=== PATIENT | female | born 1965 | race Caucasian/White ===

== ENCOUNTER → 2022-09-25 09:55 | Outpatient (CLI) | payer OTHER, SELFPAY ==
[2022-09-25 10:52] LABS: Add Manual Diff / Slide Review NO; Basophils Absolute Auto 0 /uL (0-100); Basophils Percent Auto 0.7 % (0-2); Eosinophils Absolute Auto 100 /uL (0-450); Eosinophils Percent Auto 1.9 % (2-4); Hematocrit 41.7 % (36-46); Hemoglobin 14.4 g/dL (12.0-16.0); Lymphocytes Absolute Auto 1300 /uL (1100-4500); Lymphocytes Percent Auto 24.9 % (25-40); Mean Corpuscular HGB Conc 34.5 % (30-36); Mean Corpuscular Hemoglobin 30.4 PG (26-34); Mean Corpuscular Volume 88.1 fL (80-100); Monocytes Absolute Auto 500 /uL (0-900); Neutrophils Absolute Auto 3300 /uL (1500-7000); Neutrophils Percent Auto 62.5 % (50-75); Platelet Count 287 X10^3/uL (150-400); Red Blood Cell Count 4.74 X10^6/uL (4.0-5.2); Red Cell Distribution Width 13.1 % (11.6-14.8); White Blood Cell Count 5.3 X10^3/uL (4.5-11.0)
[2022-09-25 11:00] LABS: Appearance Urine UA CLEAR; Bilirubin Urine UA NEGATIVE (NEGATIVE); Color Urine UA YELLOW; Glucose Urine UA NEGATIVE (Negative); Ketones Urine UA NEGATIVE (NEGATIVE); Leukocyte Esterase Urine UA NEGATIVE (NEGATIVE); Nitrite Urine UA NEGATIVE (Negative); Occult Blood Urine UA NEGATIVE (Negative); Protein Urine UA NEGATIVE (Negative); Urobilinogen Urine UA 0.2 E.U./dL (0.2)
[2022-09-25 11:03] LABS: pH Urine UA 5.5 (4.5-8.0)
[2022-09-25 11:13] LABS: Bacteria Urine Many (>30); Culture Indicated Urine Cult Not Indicated; RBC Urine None Seen (0-5/HPF); Squamous Epithelial Cell Urine 1-5 /HPF (0-5/HPF); WBC Urine 1-5/HPF (0-5/HPF)
[2022-09-25 12:05] LABS: TSH w/ Reflex to FT4 0.86 uIU/mL (0.47-4.68)
[2022-09-25 12:18] LABS: Vitamin D 25 Hydroxy (D3) 17.2 ng/mL (30.0-100.0)
[2022-09-25 16:57] LABS: Alanine Aminotransferase 60 IU/L (<35); Albumin 4.6 g/dL (3.5-5.0); Albumin Globulin Ratio 1.2 (1.0-2.8); Alkaline Phosphatase 183 U/L (38-126); Aspartate Aminotransferase 43 IU/L (14-36); BUN Creatinine Ratio 18.5 (6-22); Bilirubin Total 0.3 mg/dL (0.2-1.3); Blood Urea Nitrogen 10 mg/dL (7-17); Calcium 9.7 mg/dL (8.4-10.2); Carbon Dioxide 31 mmol/L (22-32); Chloride 100 mmol/L (98-107); Cholesterol 220 mg/dL (140-199); Estimated Glomerular Filt Rate > 60 mL/min (>60); Globulin 3.7 g/dL (1.7-4.1); Glucose 113 mg/dL (70-100); HDL Cholesterol 58 mg/dL (40-60); HEMOLYSIS < 15 (0-50); LDL Cholesterol Calculated 130 mg/dL (<100); Potassium 4.8 mmol/L (3.4-5.1); Sodium 138 mmol/L (137-145); Total Protein 8.3 g/dL (6.3-8.2); Triglycerides 160 mg/dL (35-150)
[2022-09-25 17:44] LABS: Vitamin B12 235 pg/mL (239-931)
[2022-09-26 05:27] LABS: Labcorp Hemoglobin (Hb) A1c 6.9 % (4.8-5.6)
[2022-09-26 10:30] LABS: Gamma Glutamyl Transpeptidase 51 U/L (12-43)
== END ==
PROVIDERS: PCP Registered Nurse; Referring Provider Registered Nurse; Visit Provider Registered Nurse
DX: Z98.84 Bariatric surgery status (principal); Z13.220 Encounter for screening for lipoid disorders; Z13.29 Encounter for screening for other suspected endocrine disorder; R30.0 Dysuria
CPT/HCPCS: 36415; 80053; 80061; 81001; 82306; 82607; 82977; 83036; 84443; 85025

== ENCOUNTER → 2022-10-23 10:42 | Outpatient (CLI) | payer OTHER, SELFPAY ==
--- NOTE | 2022-10-23 | DI.MG.S_ITS ---
BILATERAL DIGITAL SCREENING MAMMOGRAM 3D/2D WITH CAD: 10/23/2022 CLINICAL: Baseline by default. No prior exams were available for comparison. There are scattered areas of fibroglandular density in both breasts (category b / 25%-50% glandular tissue). Current study was also evaluated with a Computer Aided Detection (CAD) system. No significant masses, calcifications, or other findings are seen in either breast. IMPRESSION: NEGATIVE There is no mammographic evidence of malignancy. A 1 year screening mammogram is recommended. Based on the Tyrer Cuzick model (a risk assessment model) the patient's lifetime risk is 8.8% and her 10 year risk is 3.3%. According to the ACR, ACS, and NCCN guidelines, an annual breast MRI exam along with mammogram is recommended if the patient's lifetime risk is 20% or greater. This exam was interpreted at Station ID: [id number]. NOTE: For mammograms, a report in lay terms will be sent to the patient. Approximately 15% of breast malignancies will not be visualized mammographically. In the management of a palpable breast mass, a negative mammogram must not discourage biopsy of a clinically suspicious lesion. Electronically Signed By: Nilesh bui/jaya:10/23/2022 12:33:59 letter sent: Normal Exam ACR BI-RADS Category 1: Negative [id number]
--- NOTE | 2022-10-23 11:07 | DI.DEXA.S_ITS ---
Bone Density Report Name: YASMIN VERGARA Age: 57 Sex: Female Ethnicity: White Date of : 1965 Indication: postmenopausal; screening for osteoporosis; Referring Provider: SHWETA SHAIKH Study: Bone densitometry was performed. Exam Date: October 23, 2022 Accession number: [id number] Bone Density: Region BMD T-score Z-score Classification AP Spine(L1-L4) 0.904 -1.3 0.0 Osteopenia Femoral Neck (Left) 0.686 -1.5 -0.3 Osteopenia Total Hip (Left) 0.812 -1.1 -0.2 Osteopenia Femoral Neck (Right) 0.637 -1.9 -0.7 Osteopenia Total Hip (Right) 0.736 -1.7 -0.8 Osteopenia Total Hip Mean 0.774 -1.4 -0.5 Osteopenia World Health Organization criteria for BMD impression classify patients as: Normal (T-score at or above -1.0), Osteopenia (T-score between -1.0 and -2.5), or Osteoporosis (T-score at or below -2.5). Impression: The patient has low bone mass, based on the Right Femoral Neck T-score. Discussion: BONE DENSITY IS LOW AT ONE OR MORE SKELETAL SITES. This patient's lowest T-score is low at one or more skeletal sites. It meets the World Health Organization's (WHO) criteria for ?low bone mass? (T-score between -1.0 and -2.5). The patient's 10-year risk of fracture as calculated by FRAX is less than the threshold where pharmacological therapy is recommended by the National Osteoporosis Foundation (NOF). However, all treatment decisions require clinical judgment and consideration of individual patient factors, including patient preferences, comorbidities, previous drug use, risk factors not captured in the FRAX model (e.g., frailty, falls, vitamin D deficiency, increased bone turnover, interval significant decline in bone density) and possible under or overestimation of fracture risk by FRAX. The patient should follow a healthful lifestyle (good nutrition with adequate calcium and vitamin D, and appropriate weight-bearing exercise). Follow-Up: Consider repeating this study in 2 to 3 years to reassess this patient's status, or sooner if there is some new clinical indication. Reported by: MAURICIO JUAREZ MD on 10/23/2022 11:14:00 AM.
== END ==
PROVIDERS: PCP Registered Nurse; Referring Provider Registered Nurse; Visit Provider Registered Nurse
DX: S32.010A Wedge compression fracture of first lumbar vertebra, initial encounter for closed fracture (principal); Z12.31 Encounter for screening mammogram for malignant neoplasm of breast; Z13.820 Encounter for screening for osteoporosis; Z78.0 Asymptomatic menopausal state; M85.851 Other specified disorders of bone density and structure, right thigh
CPT/HCPCS: 77063; 77067; 77080

== ENCOUNTER 2022-12-11 12:49 | Emergency (ER) | payer OTHER, SELFPAY ==
[2022-12-11 13:27] VITALS: BP 143/83; PULSE 82; RESP 18; TEMP 36.6; O2SAT 96; BMI 30.9
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
== END 2022-12-11 16:46 | disposition left against medical advice (07) ==
PROVIDERS: Emergency Provider Emergency Medicine; PCP Registered Nurse
DX: M79.671 Pain in right foot (principal); S22.43XA Multiple fractures of ribs, bilateral, initial encounter for closed fracture; V89.2XXA Person injured in unspecified motor-vehicle accident, traffic, initial encounter
CPT/HCPCS: 71046; 73610; 73630; 99281

== ENCOUNTER → 2022-12-12 06:44 | Outpatient (CLI) | payer OTHER, SELFPAY ==
--- NOTE | 2022-12-12 06:47 | DI.US.S_ITS ---
PROCEDURE: US THYROID INDICATIONS: Nontoxic single thyroid nodule TECHNIQUE: Real-time scanning was performed of the thyroid gland, with image documentation. COMPARISON: None. FINDINGS: Right: Thyroid lobe measures 5.3 x 1.6 x 1.8 cm, and is heterogeneous in echotexture. Left: Thyroid lobe measures 3.8 x 1.2 x 1.4 cm, and is heterogeneous in echotexture. Isthmus: 5.1 mm thick. Nodule number: 1 Location: Upper pole left thyroid lobe Size: 1.2 x 1.1 x 1.4 cm. Composition: Solid Echogenicity: Hypoechoic Shape: Wider than tall Margins: Ill-defined Echogenic foci: None Total points: 6 ACR TI-RADS category: Moderately suspicious. Nodule number: 2 Location: Mid pole left thyroid lobe. Size: 0.8 x 0.6 x 0.7 cm. Composition: Solid Echogenicity: Hypoechoic Shape: Wider than tall Margins: Ill-defined Echogenic foci: None Total points: 6 ACR TI-RADS category: Moderately suspicious. Nodule number: 3 Location: Left isthmus Size: 0.3 x 0.5 x 0.6 cm. Composition: Solid Echogenicity: Hypoechoic Shape: Wider than tall Margins: Ill-defined Echogenic foci: Macro calcifications Total points: 6 ACR TI-RADS category: Moderately suspicious Nodule number: 4 Location: Mid pole right thyroid lobe Size: 1.8 x 1.3 x 1.4 cm Composition: Solid Echogenicity: Hypoechoic Shape: Wider than tall Margins: Ill-defined Echogenic foci: Macro calcifications Total points: 6 ACR TI-RADS category: Moderately suspicious IMPRESSION: Bilateral thyroid lobe nodules as described above. Consider fine-needle aspiration of right mid pole thyroid lobe nodule for further evaluation. ACR TI-RADS definitions and recommendations: TI-RADS 1 (benign): 0 points. FNA not needed. TI-RADS 2 (not suspicious): 2 points. FNA not needed. TI-RADS 3 (mildly suspicious): 3 points. * FNA if 2.5 cm or larger, follow up if 1.5 cm or larger (at 1, 3, and 5 years). TI-RADS 4 (moderately suspicious): 4-6 points. * FNA if 1.5 cm or larger, follow up if 1 cm or larger (at 1, 2, 3, and 5 years). TI-RADS 5 (highly suspicious): 7 points or more. * FNA if 1 cm or larger, follow up if 0.5 cm or larger (every year for 5 years). Dictated by: Jay Ortega M.D. on 12/12/2022 at 9:27 Approved by: Jay Ortega M.D. on 12/12/2022 at 9:30
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
== END ==
LOC: US 06:45
PROVIDERS: PCP Registered Nurse; Referring Provider Registered Nurse; Visit Provider Registered Nurse
DX: E04.2 Nontoxic multinodular goiter (principal); M51.34 Other intervertebral disc degeneration, thoracic region; M48.55XA Collapsed vertebra, not elsewhere classified, thoracolumbar region, initial encounter for fracture
CPT/HCPCS: 72070; 76536

== ENCOUNTER → 2022-12-13 08:23 | Outpatient (CLI) | payer OTHER, SELFPAY ==
[2022-12-13 09:10] LABS: Alanine Aminotransferase 83 IU/L (<35); Albumin 4.4 g/dL (3.5-5.0); Albumin Globulin Ratio 1.5 (1.0-2.8); Alkaline Phosphatase 95 U/L (38-126); Aspartate Aminotransferase 65 IU/L (14-36); BUN Creatinine Ratio 16.4 (6-22); Bilirubin Total 0.8 mg/dL (0.2-1.3); Blood Urea Nitrogen 9 mg/dL (7-17); Carbon Dioxide 31 mmol/L (22-32); Chloride 99 mmol/L (98-107); Estimated Glomerular Filt Rate > 60 mL/min (>60); Globulin 2.9 g/dL (1.7-4.1); Glucose 138 mg/dL (70-100); HEMOLYSIS < 15 (0-50); Potassium 4.6 mmol/L (3.4-5.1); Sodium 138 mmol/L (137-145); Total Protein 7.3 g/dL (6.3-8.2)
[2022-12-13 09:17] LABS: Vitamin D 25 Hydroxy (D3) 29.5 ng/mL (30.0-100.0)
[2022-12-13 09:50] LABS: Vitamin B12 326 pg/mL (239-931)
[2022-12-13 10:59] LABS: Creatinine Urine Random 147.3 mg/dL
[2022-12-13 11:04] LABS: Microalbumi Creatinin Ratio Ur 4.7 ug/mg CR (<30); Microalbumin Urine Random 0.7 mg/dL (0-1.6)
[2022-12-14 05:53] LABS: Labcorp Hemoglobin (Hb) A1c 6.1 % (4.8-5.6)
== END ==
PROVIDERS: PCP Registered Nurse; Referring Provider Registered Nurse; Visit Provider Registered Nurse
DX: E11.9 Type 2 diabetes mellitus without complications (principal); E53.8 Deficiency of other specified B group vitamins; E55.9 Vitamin D deficiency, unspecified
CPT/HCPCS: 36415; 80053; 82043; 82306; 82570; 82607; 83036

== ENCOUNTER → 2022-12-27 07:43 | Outpatient (CLI) | payer OTHER, SELFPAY ==
--- NOTE | 2022-12-27 | DI.US.S_ITS ---
PROCEDURE: US FINE NEEDLE ASPIRATION INDICATIONS: THYROID NODULE TECHNIQUE: The indications, alternatives, benefits, risks, and complications of the procedure were explained to the patient. Written informed consent was obtained and placed in the chart. The area of interest was examined sonographically and a site was chosen for ultrasound guided percutaneous sampling. The skin was prepared and draped in the usual fashion, and anesthetized with 1% lidocaine infiltrated from the skin down to the lesion. Multiple passes were then performed, with contents emptied into an appropriate pathology specimen container. A bandage was applied to the area of access at completion of the study. COMPARISON: None. FINDINGS: Location of lesion sampled: Left mid posterior (nodule #4 on US from 12/12/2022) Merrill: 25 gauge hypodermic needles. Number of passes: 6 Medications: 1% lidocaine for local anaesthesia. Complications: None. A right superior thyroid nodule is seen measuring 1.9 x 1.1 x 1.6 cm, which is solid, hypoechoic, [id number], and demonstrates smooth margins and no internal calcifications. This nodule was not included on the prior US due to other nodules with higher TI-RADS scores. IMPRESSION: 1. Successful ultrasound-guided right thyroid nodule fine needle aspiration, with cytology results pending. 2. Of note, additional right superior pole 1.9 cm nodule is seen that is only at a moderate suspicion for malignancy, but meets criteria for ultrasound guided fine-needle aspiration given its size. Recommend correlation with pathology results from the nodule biopsied today and possible fine needle aspiration of the additional nodule if indicated clinically. Approved by: Julio Blackmon M.D. on 12/27/2022 at 9:08
--- NOTE | 2022-12-27 | PATH_ITS ---
Note [facility] Accession Number: [id number] TESTS RESULT FLAG UNITS REF RANGE LAB Clinician Provided Cytology Information No. of containers..02 Previously Prepared Cytology Slide 35 Unknown Storage/container code(s) Source: [A] 01 RIGHT THYROID MID NODULE #4 DIAGNOSIS: [A] 01 RIGHT THYROID MID NODULE #4 SUSPICIOUS FOR MALIGNANCY. BETHESDA CATEGORY V. SUSPICIOUS FOR PAPILLARY CARCINOMA. SPECIMEN CONSISTS OF FOLLICULAR CELLS WITH NUCLEAR ENLARGEMENT, FINE CHROMATIN, AND INTRANUCLEAR GROOVES. THIS PATTERN IS SUSPICIOUS FOR PAPILLARY CARCINOMA. Pathologist ICD10: 01 R89.6, E04.2 Signed out by: Karla Diaz MD, Pathologist NPI- [id number] Performed by: Elijah Castañeda, Mining Manager ([facility]) Gross description: 30 CC, PINK, CLEAR RECIEVED: IN CYTOLYT WITH 6 ALCOHOL FIXED AND 6 QUICK STAINED SLIDES ALSO 1 RNA VIAL WAS RECEIVED.VO /VDU 12/28/2022 0727 Local FLAG LEGEND: L-Low Normal,H-High Normal,LL-Alert Low,HH-Alert High <-Panic Low,>-Panic High,A-Abnormal,AA-Critical Abnormal Performed at: 01 =[facility] [address] [place] [address], [place] [address] Gil Porter MD, Specimen Comment: A courtesy copy of this report has been sent to the patient Specimen Comment: A duplicate report has been generated due to demographic updates. Performed at: [address] [facility] [address], [place], [place] [id number] MD Gil Porter MD Phone: [phone]
== END ==
PROVIDERS: PCP Registered Nurse; Referring Provider Registered Nurse; Visit Provider Registered Nurse
DX: E04.2 Nontoxic multinodular goiter (principal)
CPT/HCPCS: 10005

== ENCOUNTER → 2023-01-29 12:10 | Outpatient (CLI) | payer OTHER, SELFPAY ==
--- NOTE | 2023-01-29 | DI.RAD.S_ITS ---
PROCEDURE: XR CHEST 2V INDICATIONS: Other chest pain TECHNIQUE: 2 views of the chest were acquired. COMPARISON: [facility], CR, XR CHEST 2V, 12/11/2022, 13:56. FINDINGS: Surgical changes and devices: None. Lungs and pleura: Lungs are clear. No pleural effusions or pneumothorax. Mediastinum: Mediastinal contours are normal. Heart size is normal. Bones and chest wall: No suspicious bony abnormalities. Soft tissues appear unremarkable. IMPRESSION: No acute cardiopulmonary process. Dictated by: Marvin Sullivan M.D. on 01/29/2023 at 13:31 Approved by: Marvin Sullivan M.D. on 01/29/2023 at 13:32
== END ==
LOC: RAD 12:12
PROVIDERS: PCP Registered Nurse; Referring Provider Registered Nurse; Visit Provider Registered Nurse
DX: R07.89 Other chest pain (principal)
CPT/HCPCS: 71046

== ENCOUNTER 2023-02-11 12:08 | Emergency (ER) | payer OTHER, SELFPAY ==
[2023-02-11] VITALS (19 sets, daily range): BP systolic 129–184; BP diastolic 66–94; PULSE 71–98; RESP 13–28; TEMP 36.3; O2SAT 95–98; BMI 30.9
[2023-02-11 13:11] LABS: Add Manual Diff / Slide Review NO; Basophils Absolute Auto 0 /uL (0-100); Basophils Percent Auto 0.6 % (0-2); Eosinophils Absolute Auto 300 /uL (0-450); Eosinophils Percent Auto 4.1 % (2-4); Hemoglobin 15.6 g/dL (12.0-16.0); Lymphocytes Absolute Auto 2400 /uL (1100-4500); Lymphocytes Percent Auto 30.3 % (25-40); Mean Corpuscular HGB Conc 34.6 % (30-36); Mean Corpuscular Hemoglobin 31.8 PG (26-34); Monocytes Absolute Auto 600 /uL (0-900); Monocytes Percent Auto 7.5 % (3-14); Neutrophils Absolute Auto 4600 /uL (1500-7000); Neutrophils Percent Auto 57.5 % (50-75); Platelet Count 256 X10^3/uL (150-400); Red Blood Cell Count 4.89 X10^6/uL (4.0-5.2); Red Cell Distribution Width 12.8 % (11.6-14.8); White Blood Cell Count 7.9 X10^3/uL (4.5-11.0)
[2023-02-11 13:12] LABS: Alanine Aminotransferase 46 IU/L (<35); Albumin 4.5 g/dL (3.5-5.0); Albumin Globulin Ratio 1.5 (1.0-2.8); Alkaline Phosphatase 94 U/L (38-126); Aspartate Aminotransferase 58 IU/L (14-36); BUN Creatinine Ratio 20.8 (6-22); Bilirubin Total 0.4 mg/dL (0.2-1.3); Blood Urea Nitrogen 10 mg/dL (7-17); Carbon Dioxide 23 mmol/L (22-32); Chloride 104 mmol/L (98-107); Estimated Glomerular Filt Rate > 60 mL/min (>60); Globulin 3.1 g/dL (1.7-4.1); Glucose 99 mg/dL (70-100); HEMOLYSIS 40 (0-50); Lipase 200 U/L (23-300); Potassium 4.8 mmol/L (3.4-5.1); Sodium 137 mmol/L (137-145); Total Protein 7.6 g/dL (6.3-8.2)
[2023-02-11 13:16] LABS: Magnesium 1.4 mg/dL (1.6-2.3)
[2023-02-11 13:47] LABS: TSH w/ Reflex to FT4 1.01 uIU/mL (0.47-4.68)
--- NOTE | 2023-02-11 15:34 | ED.RECABL ---
HPI - Recheck/Abnormal Lab/Rx General Chief Complaint: Recheck/Abnormal Lab/Rx Stated Complaint: thyroid surgery t-5, sent by , low calcium Time Seen by Provider: 02/11/23 13:27 History of Present Illness HPI narrative: Patient 57-year-old female recent history of type 2 diabetes, gastric bypass, thyroidectomy for thyroid cancer [address] [facility]. She reports she was feeling weak lightheaded. She is been taking oral calcium for thinks that her calcium is still low. She denies fever or chills. She is been taking oral calcium and Tums. Just generally feeling shaky and weak. Related Data Allergies Allergy/AdvReac Type Severity Reaction Status Date / Time No Known Drug Allergies Allergy Verified 12/11/22 13:27 Review of Systems Review of Systems ROS Unobtainable: All systems reviewed & are unremarkable except as noted in HPI and below Patient History Social History Smoking Status: Former smoker Smoking Status: Former smoker alcohol intake frequency: 0-2 drinks per day Alcohol type: wine Substance Use Type: does not use Exam Initial Vital Signs Initial Vital Signs: Vital Signs Temperature 97.4 F L 02/11/23 12:30 Pulse Rate 72 02/11/23 12:30 Respiratory Rate 16 02/11/23 12:30 Blood Pressure 184/83 H 02/11/23 12:30 Pulse Oximetry 97 02/11/23 12:30 Oxygen Delivery Method Room Air 02/11/23 12:30 GENERAL: Alert pleasant 57-year-old female and in no acute distress. HEENT: Head atraumatic,EOMI, pupils reactive, face symmetric, moist mucous membranes CARDIOVASCULAR: Regular rate and rhythm without murmurs, rubs or gallops. RESPIRATORY: Breath sounds equal bilaterally, no wheezes rales or rhonchi. ABDOMEN: Soft, nontender. Normoactive bowel sounds all 4 quadrants. No guarding or rebound. EXTREMITIES: Normal range of motion, no clubbing or edema. Neurovascularly intact NEUROLOGICAL: Alert and oriented x4. SKIN: Incision site noted on neck clean and dry Steri-Strips in place Course Orders Ordered: ED Orders 02/11/23 12:43 Complete Blood Count AUTO DIFF Stat Comprehensive Metabolic Panel Stat Lipase Stat MAG [Magnesium] Stat PHOS [Phosphorous] Stat TSH w/ Reflex to FT4 Stat 02/11/23 12:52 EKG-12 Lead Stat 02/11/23 13:26 Ionized Calcium Stat Discontinued Medications Calcium Gluconate 4.65 meq/ (Sodium Chloride) 60 mls @ 180 mls/hr IV NOW ONE Stop: 02/11/23 15:53 Last Infusion: 02/11/23 17:03 Dose: 0 mls/hr Documented By: Admin: 02/11/23 16:25 Dose: 180 mls/hr Documented By: TORSTEN Magnesium Sulfate (Magnesium Sulfate) 2 gm in 50 mls @ 150 mls/hr IV NOW ONE Stop: 02/11/23 15:54 Last Infusion: 02/11/23 17:49 Dose: 0 mls/hr Documented By: TORSTEN Co-signed By: ART Admin: 02/11/23 17:04 Dose: 75 mls/hr Documented By: TORSTEN Co-signed By: CARY Ondansetron HCl (Ondansetron 4 Mg Odt) 4 mg PO NOW PRN PRN Reason: Nausea And Vomiting Ondansetron HCl (Ondansetron 4 Mg/2 Ml Inj) 4 mg IV NOW PRN PRN Reason: Nausea And Vomiting Vital Signs Vital signs: Vital Signs - 8 hr 02/11/23 12:30 02/11/23 12:47 02/11/23 12:47 Temperature 97.4 F L Pulse Rate 72 75 Respiratory Rate 16 Blood Pressure 184/83 H 167/94 H Pulse Oximetry 97 97 Oxygen Delivery Method Room Air 02/11/23 12:49 02/11/23 12:49 02/11/23 13:00 Temperature Pulse Rate 71 Respiratory Rate 21 Blood Pressure 162/89 H 164/87 H Pulse Oximetry 98 Oxygen Delivery Method 02/11/23 13:00 02/11/23 13:30 02/11/23 13:30 Temperature Pulse Rate 74 74 Respiratory Rate 16 18 Blood Pressure 162/70 H Pulse Oximetry 96 96 Oxygen Delivery Method 02/11/23 14:00 02/11/23 14:00 02/11/23 14:30 Temperature Pulse Rate 77 85 Respiratory Rate 19 13 Blood Pressure 141/75 H Pulse Oximetry 96 95 Oxygen Delivery Method Room Air 02/11/23 15:13 02/11/23 15:30 02/11/23 16:01 Temperature Pulse Rate 75 79 98 H Respiratory Rate 16 28 H 24 Blood Pressure Pulse Oximetry Oxygen Delivery Method 02/11/23 16:14 02/11/23 16:14 02/11/23 16:16 Temperature Pulse Rate 82 84 Respiratory Rate 15 16 Blood Pressure 158/75 H Pulse Oximetry Oxygen Delivery Method 02/11/23 16:16 02/11/23 16:20 02/11/23 16:20 Temperature Pulse Rate 84 Respiratory Rate 16 Blood Pressure 138/74 135/69 Pulse Oximetry Oxygen Delivery Method 02/11/23 16:30 02/11/23 16:40 02/11/23 16:40 Temperature Pulse Rate 84 83 Respiratory Rate 16 20 Blood Pressure 129/85 Pulse Oximetry 97 96 Oxygen Delivery Method 02/11/23 17:00 02/11/23 17:00 02/11/23 17:21 Temperature Pulse Rate 80 82 Respiratory Rate 20 22 Blood Pressure 134/83 Pulse Oximetry 96 96 Oxygen Delivery Method 02/11/23 17:21 02/11/23 17:30 02/11/23 17:40 Temperature Pulse Rate 81 75 Respiratory Rate 17 21 Blood Pressure 135/66 Pulse Oximetry 96 95 Oxygen Delivery Method Room Air 02/11/23 17:40 Temperature Pulse Rate Respiratory Rate Blood Pressure 148/83 H Pulse Oximetry Oxygen Delivery Method MDM - Recheck/Abnormal Lab/Rx Lab Data 02/11/23 12:43 02/11/23 12:43 Labs: Lab Results 02/11/23 02/11/23 02/11/23 Range/Units 12:43 12:43 12:43 WBC 7.9 (4.5-11.0) X10^3/uL RBC 4.89 (4.0-5.2) X10^6/uL Hgb 15.6 (12.0-16.0) g/dL Hct 45.0 (36-46) % MCV 92.0 (80-100) fL MCH 31.8 (26-34) PG MCHC 34.6 (30-36) % RDW 12.8 (11.6-14.8) % Plt Count 256 (150-400) X10^3/uL Neut % (Auto) 57.5 (50-75) % Lymph % (Auto) 30.3 (25-40) % [place] % (Auto) 7.5 (3-14) % Eos % (Auto) 4.1 H (2-4) % Baso % (Auto) 0.6 (0-2) % Neut # (Auto) 4600 (3779-8649) /uL Lymph # (Auto) 2400 (3564-1008) /uL [place] # (Auto) 600 (0-900) /uL Eos # (Auto) 300 (0-450) /uL Baso # (Auto) 0 (0-100) /uL Sodium 137 (137-145) mmol/L Potassium 4.8 (3.4-5.1) mmol/L Chloride 104 (98-107) mmol/L Carbon Dioxide 23 (22-32) mmol/L BUN 10 (7-17) mg/dL Creatinine 0.48 L (0.52-1.04) mg/dL Estimated GFR > 60 (>60) mL/min BUN/Creatinine Ratio 20.8 (6-22) Glucose 99 (70-100) mg/dL Calcium 7.0 L (8.4-10.2) mg/dL Phosphorus (2.5-4.5) mg/dL Magnesium (1.6-2.3) mg/dL Total Bilirubin 0.4 (0.2-1.3) mg/dL AST 58 H (14-36) IU/L ALT 46 H (<35) IU/L Alkaline Phosphatase 94 (38-126) U/L Total Protein 7.6 (6.3-8.2) g/dL Albumin 4.5 (3.5-5.0) g/dL Globulin 3.1 (1.7-4.1) g/dL Albumin/Globulin Ratio 1.5 (1.0-2.8) Lipase 200 (23-300) U/L TSH 1.01 (0.47-4.68) uIU/mL 02/11/23 02/11/23 Range/Units 12:43 12:43 WBC (4.5-11.0) X10^3/uL RBC (4.0-5.2) X10^6/uL Hgb (12.0-16.0) g/dL Hct (36-46) % MCV (80-100) fL MCH (26-34) PG MCHC (30-36) % RDW (11.6-14.8) % Plt Count (150-400) X10^3/uL Neut % (Auto) (50-75) % Lymph % (Auto) (25-40) % [place] % (Auto) (3-14) % Eos % (Auto) (2-4) % Baso % (Auto) (0-2) % Neut # (Auto) (3149-9078) /uL Lymph # (Auto) (2241-3920) /uL [place] # (Auto) (0-900) /uL Eos # (Auto) (0-450) /uL Baso # (Auto) (0-100) /uL Sodium (137-145) mmol/L Potassium (3.4-5.1) mmol/L Chloride (98-107) mmol/L Carbon Dioxide (22-32) mmol/L BUN (7-17) mg/dL Creatinine (0.52-1.04) mg/dL Estimated GFR (>60) mL/min BUN/Creatinine Ratio (6-22) Glucose (70-100) mg/dL Calcium (8.4-10.2) mg/dL Phosphorus 6.3 H (2.5-4.5) mg/dL Magnesium 1.4 L (1.6-2.3) mg/dL Total Bilirubin (0.2-1.3) mg/dL AST (14-36) IU/L ALT (<35) IU/L Alkaline Phosphatase (38-126) U/L Total Protein (6.3-8.2) g/dL Albumin (3.5-5.0) g/dL Globulin (1.7-4.1) g/dL Albumin/Globulin Ratio (1.0-2.8) Lipase (23-300) U/L TSH (0.47-4.68) uIU/mL ECG Data Interpretation: Sinus rhythm rate 70 NE interval 178 QRS 74 QTC 457 T-wave inversion noted in lead [address] changes MDM Narrative Medical decision making narrative: Patient 57-year-old female found to be hypocalcemic and hypomagnesemic after thyroid surgery which is to be expected. She is given IV replacement for both. Feeling little bit better. Recommend having labs rechecked by surgeon or PCP in a few days. She understands and agrees. Also welcome to return if needed for a repeat infusion. Discharge Plan Departure Patient Disposition: Home Clinical Impression: Hypocalcemia, Hypomagnesemia Instructions: Hypocalcemia Activity Restrictions/Additional Instructions: *You have been diagnosed with hypomagnesemia, hypocalcemia *What to do: At this time please have your blood work rechecked later this week. You may require another calcium infusion *Continue to take medications as directed *Follow up with your primary care provider in 2-3 days or call [phone] *Return to ER if you should have increasing weakness palpitations or any new, worsening or concerning symptoms Referrals: Florinda Rodriguez ARNP [Primary Care Provider] - Stand Alone Forms: Patient Portal/API
[2023-02-11 16:01] LABS: Phosphorous 6.3 mg/dL (2.5-4.5)
[2023-02-11] MEDS: CALCIUM GLUCONATE 4.65 MEQ in SODIUM CHLORIDE 0.9% 50 ML 180 MEQ IV (16:25)
[2023-02-11] MEDS: MAGNESIUM SULFATE 2 GM/50 ML PIGGYBACK IV (17:04)
[2023-02-12 10:23] LABS: Ionized Calcium 3.3 mg/dL (4.5-5.6)
== END 2023-02-11 18:01 | disposition home or self-care (01) ==
PROVIDERS: Emergency Provider Emergency Medicine; PCP Registered Nurse
DX: E83.51 Hypocalcemia (principal); E83.42 Hypomagnesemia; R10.9 Unspecified abdominal pain
CPT/HCPCS: 36415; 80053; 82330; 83690; 83735; 84100; 84443; 85025; 93005; 96365; 96367; 99284; J0612; J3475

== ENCOUNTER → 2023-02-17 08:59 | Outpatient (CLI) | payer OTHER, SELFPAY ==
[2023-02-18 11:08] LABS: Calcium 8.5 mg/dL (8.7-10.2); Parathyroid Hormone, Intact 23 pg/mL (15-65)
== END ==
PROVIDERS: PCP Registered Nurse; Referring Provider Otolaryngology; Visit Provider Otolaryngology
DX: E89.0 Postprocedural hypothyroidism (principal)
CPT/HCPCS: 36415; 82310; 83970

== ENCOUNTER → 2023-03-07 17:28 | Outpatient (CLI) | payer OTHER, SELFPAY ==
[2023-03-08 09:06] LABS: Parathyroid Hormone, Intact 44 pg/mL (15-65)
== END ==
PROVIDERS: Referring Provider Otolaryngology; Visit Provider Otolaryngology
DX: E89.0 Postprocedural hypothyroidism (principal)
CPT/HCPCS: 36415; 82310; 83970

== ENCOUNTER → 2023-05-29 10:34 | Outpatient (CLI) | payer OTHER, SELFPAY ==
[2023-05-29 13:15] LABS: Alanine Aminotransferase 32 IU/L (<35); Albumin 4.8 g/dL (3.5-5.0); Albumin Globulin Ratio 1.4 (1.0-2.8); Alkaline Phosphatase 81 U/L (38-126); Aspartate Aminotransferase 35 IU/L (14-36); BUN Creatinine Ratio 25.5 (6-22); Bilirubin Total 0.6 mg/dL (0.2-1.3); Blood Urea Nitrogen 14 mg/dL (7-17); Calcium 10.1 mg/dL (8.4-10.2); Carbon Dioxide 28 mmol/L (22-32); Chloride 102 mmol/L (98-107); Estimated Glomerular Filt Rate > 60 mL/min (>60); Globulin 3.5 g/dL (1.7-4.1); Glucose 216 mg/dL (70-100); HEMOLYSIS < 15 (0-50); Potassium 4.6 mmol/L (3.4-5.1); Sodium 140 mmol/L (137-145); Total Protein 8.3 g/dL (6.3-8.2)
[2023-05-29 13:37] LABS: Vitamin D 25 Hydroxy (D3) 37.6 ng/mL (30.0-100.0)
[2023-05-29 14:03] LABS: Free T3, Triiodothyronine Free 3.15 pg/mL (2.77-5.27); Free T4, Direct Thyroxine 1.42 ng/dL (0.78-2.19)
[2023-05-29 14:17] LABS: Thyroid Stimulating Hormone 1.99 uIU/mL (0.47-4.68)
[2023-05-30 08:54] LABS: Ionized Calcium 4.8 mg/dL (4.5-5.6); Parathyroid Hormone Int 32 pg/mL (15-65)
== END ==
PROVIDERS: Referring Provider Internal Medicine Endocrinology, Diabetes & Metabolism; Visit Provider Internal Medicine Endocrinology, Diabetes & Metabolism
DX: Z98.84 Bariatric surgery status (principal); E83.51 Hypocalcemia; E11.65 Type 2 diabetes mellitus with hyperglycemia; E89.0 Postprocedural hypothyroidism; C73 Malignant neoplasm of thyroid gland
CPT/HCPCS: 36415; 80053; 82306; 82330; 83970; 84439; 84443; 84481